=== PATIENT | female | born 1985 | race Caucasian/White ===

== ENCOUNTER 2017-07-03 15:36 | Emergency (ER) | payer MEDICAID ==
[~2017-07-03] VITALS: Ht 154.9 cm; Wt 50.0 kg
[2017-07-03] MEDS ORDERED: CARB200T PO (15:47)
[2017-07-03] MEDS ORDERED: PHEN100C4 PO (15:47)
[2017-07-03] MEDS ORDERED: LACO100T2 PO (15:47)
[2017-07-03] MEDS ORDERED: SODIUM CHLORIDE 0.9% 1,000 ML IV ONE (18:02)
[2017-07-03] MEDS ORDERED: MORPHINE SULFATE 4 MG/ML CPJ (NOT FOR IM USE) IV ONE ×2 (18:07→18:30)
[2017-07-03] MEDS ORDERED: ONDANSETRON HCL 4MG/2ML VIAL ONE (18:08)
[2017-07-03] MEDS ORDERED: LEVETIRACETAM 500MG PREMIX 100 ML IV ONE (18:15)
[2017-07-03] MEDS ORDERED: ONDANSETRON HCL 4MG/2ML VIAL IV ONE (18:30)
[2017-07-03 18:31] LABS: BASOPHILS % 0.3 % (0.0-2.0); HEMATOCRIT. 34.7 % (36.0-48.0); HEMOGLOBIN. 11.3 g/dL (12.0-16.0); LYMPHOCYTES % 14.3 % (20.0-50.0); MEAN CORPUSCULAR HEMOGLOBIN 25.7 pg (28.0-32.0); MEAN CORPUSCULAR VOLUME 79.2 fL (81.0-99.0); MEAN PLATELET VOLUME 7.4 fl (7.4-10.4); MONOCYTES % 5.4 % (2.0-8.0); PLATELET 250 x1000/uL (130-400); RED BLOOD CELL COUNT 4.38 mill/uL (4.2-5.4); RED CELL DISTRIBUTION WIDTH 15.1 % (11.6-14.6)
[2017-07-03 18:33] LABS: CHLORIDE 107 mEq/L (98-107)
[2017-07-03 18:34] LABS: INR 1.1; PROTHROMBIN TIME 11.2 sec (9.4-11.6)
[2017-07-03 18:42] LABS: CARBON DIOXIDE 23 mEq/L (21-32); CREATINE KINASE 57 IU/L (26-192); ETHANOL BLOOD < 10 mg/dL; TROPONIN I < 0.02 ng/mL (0.00-0.04)
[2017-07-03 18:54] LABS: PHENOBARBITAL < 2.1 ug/mL (15.0-40.0)
[2017-07-03] MEDS ORDERED: PHENYTOIN SODIUM EXTENDED 100MG CAPSULE PO ONE (19:45)
[2017-07-03] MEDS ORDERED: CARBAMAZEPINE 200MG TABLET PO ONE (19:45)
[2017-07-03 20:53] VITALS: BP 135/80
== END 2017-07-03 20:51 | disposition home or self-care (01) ==
LOC: ER 15:43
DX: R56.9 Unspecified convulsions (principal); E86.0 Dehydration; K14.6 Glossodynia; F17.200 Nicotine dependence, unspecified, uncomplicated
CPT/HCPCS: 36415; 80053; 80156; 80165; 80184; 80185; 82550; 84443; 84484; 85025; 85610; 93005; 96365; 96375; 99285; G0482; J1953; J2270; J2405; Z7610; J7030